=== PATIENT | female | born 1940 | race Caucasian/White ===

== ENCOUNTER 2024-04-09 17:41 | Emergency (ER) | payer MEDICARE, OTHER ==
[2024-04-09 18:04] LABS: BASOPHILS 1.3 % (0-2); EOSINOPHILS 2.1 % (0-6); HEMATOCRIT 44.6 % (35.0-50.0); HEMOGLOBIN 14.5 g/dL (12.0-18.0); LYMPHOCYTES 38.8 % (24-44); MCH 31.5 (27-36); MCHC 32.4 g/dl (30-36); MCV 97.2 fl (81-99); MONOCYTES 11.8 % (0-12); PLATELET COUNT 216 K/uL (140-440); RBC 4.59 M/ul (4.3-5.7)
[2024-04-09 18:18] LABS: ALBUMIN/GLOBULIN RATIO 0.95 (1.1-2.4); ALCOHOL, MEDICAL <3 ng/dL (<3); ALKALINE PHOSPHATASE 136 U/L (46-116); ALT (SGPT) 23 U/L (14-59); ANION GAP 9.8 (7-21); AST (SGOT) 25 U/L (15-37); BILIRUBIN, TOTAL 0.7 ng/dL (0.2-1.0); BUN/CREATININE RATIO 12.34 (6.0-28.6); CALCIUM 9.2 mg/dL (8.5-10.1); CARBON DIOXIDE 33 mmol/L (21-32); CHLORIDE 96 mmol/L (98-107); CREATININE, SERUM 0.81 mg/dL (0.55-1.02); GLOMERULAR FILTRATION RATE,EST 71 mL/min (>60); POTASSIUM 3.8 mmol/L (3.5-5.1); PROTEIN, TOTAL 8.2 g/dL (6.4-8.2); UREA NITROGEN 10 mg/dL (7-18)
[2024-04-09] MEDS ORDERED: LIDOCAINE/RACEPINEP/TETRACAINE 3 ML SYR TOP ONE (18:45)
[2024-04-09 19:30] VITALS: BP 208/96
== END 2024-04-09 19:35 | disposition home or self-care (01) ==
LOC: ED 17:41
PROVIDERS: Emergency Medicine
DX: S01.01XA Laceration without foreign body of scalp, initial encounter (principal); I10 Essential (primary) hypertension; I48.91 Unspecified atrial fibrillation; W01.0XXA Fall on same level from slipping, tripping and stumbling without subsequent striking against object, initial encounter; Z88.5 Allergy status to narcotic agent
CPT/HCPCS: 36415; 70450; 80053; 85025; G0480

== ENCOUNTER 2024-06-11 13:39 | Emergency (ER) | payer MEDICARE, OTHER ==
[~2024-06-11] VITALS: Ht 165.1 cm; Wt 65.5 kg
[2024-06-11] MEDS ORDERED: METOPROLOL TAR100 MG PO (14:01)
[2024-06-11] MEDS ORDERED: LEVOTHYROXINE50 MCG PO (14:01)
[2024-06-11] MEDS ORDERED: XARELTO20 MG PO (14:01)
[2024-06-11] MEDS ORDERED: VERAPAMIL ER P300 MG PO (14:01)
[2024-06-11 14:19] LABS: BASOPHILS 0.2 % (0-2); EOSINOPHILS 0.6 % (0-6); HEMATOCRIT 40.2 % (35.0-50.0); HEMOGLOBIN 13.3 g/dL (12.0-18.0); LYMPHOCYTES 23.5 % (24-44); MCH 32.1 (27-36); MCHC 33.2 g/dl (30-36); MCV 96.8 fl (81-99); MONOCYTES 11.2 % (0-12); NEUTROPHILS 64.5 % (39-80); PLATELET COUNT 208 K/uL (140-440); RBC 4.15 M/ul (4.3-5.7); RDW 17.2 (10.5-15.0)
[2024-06-11] MEDS ORDERED: predniSONE 20 MG TAB PO ONE (14:30)
[2024-06-11] MEDS ORDERED: ALBUTEROL/IPRATROPIUM 3 ML NEB INH ONE (14:30)
[2024-06-11 14:36] LABS: ALBUMIN 3.8 g/dL (3.4-5.0); ALBUMIN/GLOBULIN RATIO 0.95 (1.1-2.4); ANION GAP 9.5 (7-21); BILIRUBIN, TOTAL 1.2 ng/dL (0.2-1.0); BUN/CREATININE RATIO 16.48 (6.0-28.6); CALCIUM 9.2 mg/dL (8.5-10.1); CREATININE, SERUM 0.91 mg/dL (0.55-1.02); MAGNESIUM 2.1 mg/dL (1.8-2.4); POTASSIUM 4.5 mmol/L (3.5-5.1); PROTEIN, TOTAL 7.8 g/dL (6.4-8.2)
[2024-06-11] MEDS ORDERED: LASIX20 MG PO (16:28)
[2024-06-11] MEDS ORDERED: VENTOLIN HFA18 GM INH (16:28)
[2024-06-11] MEDS ORDERED: INHALER, ASSIST DEVICES 1 EACH SPACER MISC ONE (16:30)
[2024-06-11] MEDS ORDERED: AMLODIPINE BESYLATE 2.5 MG TAB PO ONE (16:30)
[2024-06-11] MEDS ORDERED: FUROSEMIDE 20 MG TAB PO ONE (16:30)
[2024-06-11] MEDS ORDERED: ALBUTEROL SULFATE 8 GM HOME.PACK INH ONE (16:30)
[2024-06-11 17:35] VITALS: BP 174/115
--- NOTE | 2024-06-12 17:05 | EKG ---
[facility] [address] [facility] [place], [place] [address] Signed Atrial fibrillation Left axis deviation Right bundle branch block T wave abnormality, consider lateral ischemia Abnormal ECG No previous ECGs available Confirmed by Jace Lindsay MD ([id number]) on 06/12/2024 5:04:53 PM Electronically Signed By: JACE LINDSAY MD 06/12/24 1705 PATIENT NAME: GRACEDIMPLE PENNY Electrocardiogram DATE OF : 36 PHYSICIAN: JACE LINDSAY MD REPORT #: [id number] REPORT IS CONFIDENTIAL AND NOT TO BE RELEASED WITHOUT AUTHORIZATION
== END 2024-06-11 17:35 | disposition home or self-care (01) ==
LOC: ED 13:39
PROVIDERS: Emergency Medicine
DX: I11.0 Hypertensive heart disease with heart failure (principal); I50.9 Heart failure, unspecified; I48.91 Unspecified atrial fibrillation; Z79.01 Long term (current) use of anticoagulants; Z79.899 Other long term (current) drug therapy; Z88.5 Allergy status to narcotic agent; I08.1 Rheumatic disorders of both mitral and tricuspid valves; I27.20 Pulmonary hypertension, unspecified
CPT/HCPCS: 36415; 71045; 80053; 83735; 83880; 84484; 85025; 93005; 93010; 93306; 94640; 94664; 99285-25; J7512

== ENCOUNTER 2024-08-11 10:17 | Emergency (ER) | payer MEDICARE, OTHER ==
[~2024-08-11] VITALS: Ht 165.1 cm; Wt 65.9 kg
[~2024-08-11 10:17] MED LIST: LASIX20 MG PO; LEVOTHYROXINE50 MCG PO; METOPROLOL TAR100 MG PO; VENTOLIN HFA18 GM INH; VERAPAMIL ER P300 MG PO; XARELTO20 MG PO
[2024-08-11] MEDS ORDERED: OSTERA TABLET1 EACH PO (11:19)
[2024-08-11] MEDS ORDERED: TRAMADOL HCL50 MG PO (11:20)
[2024-08-11] MEDS ORDERED: TYLENOL EXTRA500 MG PO (11:20)
[2024-08-11] MEDS ORDERED: NITROGLYCERIN 0.4 MG SUBL SL PRN (11:30)
[2024-08-11] MEDS ORDERED: ondansetron HCL 4 MG/2 ML VIAL IV ONE (11:30)
[2024-08-11] MEDS ORDERED: HYDROmorphone HCL 1 MG/ML SYR IV ONE (11:30)
[2024-08-11] MEDS ORDERED: SODIUM CHLORIDE 0.9% 1,000 ML IV ONE (11:30)
[2024-08-11 11:40] LABS: BASOPHILS 1.1 % (0-2); EOSINOPHILS 0.7 % (0-6); HEMATOCRIT 39.1 % (35.0-50.0); HEMOGLOBIN 13.1 g/dL (12.0-18.0); MCH 33.6 (27-36); MCHC 33.5 g/dl (30-36); MCV 100.5 fl (81-99); MONOCYTES 11.8 % (0-12); NEUTROPHILS 70.4 % (39-80); PLATELET COUNT 178 K/uL (140-440); RBC 3.89 M/ul (4.3-5.7); RDW 16.6 (10.5-15.0)
[2024-08-11 11:57] LABS: INR 3.85 (0.80-1.30); PROTIME 36.7 Sec (11.2-14.2)
[2024-08-11 12:03] LABS: PARTIAL THROMBOPLASTIN TIME 52.5 Sec (22.9-41.3)
[2024-08-11 12:08] LABS: ALBUMIN 3.4 g/dL (3.4-5.0); ALBUMIN/GLOBULIN RATIO 0.79 (1.1-2.4); ANION GAP 12.6 (7-21); BILIRUBIN, TOTAL 1.2 ng/dL (0.2-1.0); BUN/CREATININE RATIO 13.04 (6.0-28.6); CREATININE, SERUM 0.92 mg/dL (0.55-1.02); POTASSIUM 3.6 mmol/L (3.5-5.1); PROTEIN, TOTAL 7.7 g/dL (6.4-8.2)
[2024-08-11 13:05] LABS: INFLUENZA B NAA NEGATIVE (NEGATIVE); RESPIRATORY SYNCYTIAL VIR NAA NEGATIVE (NEGATIVE)
[2024-08-11 13:51] LABS: BILIRUBIN, URINE NEGATIVE (negative); BLOOD/HGB, URINE SMALL (Negative); KETONE, URINE NEGATIVE (Negative); LEUK ESTERASE, URINE NEGATIVE (negative); NITRITE, URINE NEGATIVE (negative)
[2024-08-11 13:58] LABS: BACTERIA, URINE RARE /hpf (negative); CASTS, URINE NONE SEEN \\lpf; COLLECTION TYPE, URINE CLEAN CATCH; CRYSTALS, URINE NONE SEEN (0-1+); EPITHELIAL CELLS, URINE SQUAMOUS 1+ /lpf (0-1+); REFLEX CULTURE, URINE No (No)
[2024-08-11] MEDS ORDERED: HYDROCODON-ACE1 EA10 PO (15:33)
[2024-08-11 15:44] VITALS: BP 157/99
--- NOTE | 2024-08-14 19:06 | EKG ---
[facility] [address] [facility] [place] [address] Signed Atrial fibrillation with a competing junctional pacemaker Right bundle branch block T wave abnormality, consider inferolateral ischemia Abnormal ECG When compared with ECG of 11-JUN-2024 14:03, T wave inversion more evident in Anterolateral leads QT has lengthened Confirmed by Jace Lindsay MD ([id number]) on 08/14/2024 7:06:18 PM Electronically Signed By: JACE LINDSAY MD 08/14/24 1906 PATIENT NAME: DIMPLE EDWARDS PENNY Electrocardiogram DATE OF : 36 PHYSICIAN: JACE LINDSAY MD REPORT #: [id number] REPORT IS CONFIDENTIAL AND NOT TO BE RELEASED WITHOUT AUTHORIZATION
== END 2024-08-11 15:51 | disposition home or self-care (01) ==
LOC: ED 10:17
PROVIDERS: Emergency Medicine
DX: R10.31 Right lower quadrant pain (principal); R10.32 Left lower quadrant pain; R07.89 Other chest pain; I12.9 Hypertensive chronic kidney disease with stage 1 through stage 4 chronic kidney disease, or unspecified chronic kidney disease; I50.9 Heart failure, unspecified; I48.91 Unspecified atrial fibrillation; Z88.5 Allergy status to narcotic agent; Z79.01 Long term (current) use of anticoagulants; Z79.890 Hormone replacement therapy; Z79.899 Other long term (current) drug therapy
CPT/HCPCS: 36415; 71045; 74176; 80053; 81001; 83690; 83880; 84484; 85025; 85610; 85730; 87502; 93005; 93010; 96374; 96375; 99285-25; J1171; J2405; J7030; U0002

== ENCOUNTER 2024-08-28 13:32 | Inpatient (IN) | payer MEDICARE, OTHER ==
[~2024-08-28] VITALS: Ht 165.1 cm
[~2024-08-28 13:32] MED LIST changes: +HYDROCODON-ACE1 EA10 PO; +TRAMADOL HCL50 MG PO; +TYLENOL325 MG PO; +VITAMIN D350 MCG PO
[2024-08-28 14:29] LABS: BASOPHILS 1.3 % (0-2); EOSINOPHILS 0.8 % (0-6); HEMATOCRIT 39.8 % (35.0-50.0); HEMOGLOBIN 13.1 g/dL (12.0-18.0); LYMPHOCYTES 18.9 % (24-44); MCH 33.5 (27-36); MCHC 32.9 g/dl (30-36); MCV 101.8 fl (81-99); MONOCYTES 12.8 % (0-12); NEUTROPHILS 66.2 % (39-80); PLATELET COUNT 236 K/uL (140-440); RBC 3.91 M/ul (4.3-5.7); RDW 16.1 (10.5-15.0)
[2024-08-28 14:56] LABS: ALBUMIN 3.8 g/dL (3.4-5.0); ALBUMIN/GLOBULIN RATIO 0.9 (1.1-2.4); ANION GAP 12.5 (7-21); BILIRUBIN, TOTAL 1.1 ng/dL (0.2-1.0); BUN/CREATININE RATIO 13.59 (6.0-28.6); CALCIUM 9.1 mg/dL (8.5-10.1); CREATININE, SERUM 1.03 mg/dL (0.55-1.02); POTASSIUM 3.5 mmol/L (3.5-5.1)
[2024-08-28] MEDS ORDERED: hydrALAZINE HCL 25 MG TAB PO ONE (17:30)
[2024-08-28] MEDS ORDERED: LIDOCAINE HCL 4% 1 EACH PATCH TD SCH ×2 (18:30→18:31)
[2024-08-28] MEDS ORDERED: INHALER, ASSIST DEVICES 1 EACH SPACER MISC ONE (19:00)
[2024-08-28] MEDS ORDERED: ALBUTEROL SULFATE 8 GM INH INH PRN (19:00)
--- NOTE | 2024-08-28 19:25 | EKG ---
[facility] [address] [facility] [place] [address] Signed Atrial fibrillation with premature ventricular or aberrantly conducted complexes Right bundle branch block Anteroseptal infarct , age undetermined T wave abnormality, consider inferolateral ischemia Abnormal ECG When compared with ECG of 11-AUG-2024 11:17, No significant change was found Confirmed by Kayla Lindsay MD ([id number]) on 08/28/2024 7:25:38 PM Electronically Signed By: KAYLA LINDSAY MD 08/28/24 1925 PATIENT NAME: DIMPLE EDWARDS Electrocardiogram DATE OF : 36 PHYSICIAN: KAYLA LINDSAY MD REPORT #: [id number] REPORT IS CONFIDENTIAL AND NOT TO BE RELEASED WITHOUT AUTHORIZATION
--- NOTE | 2024-08-28 20:20 | NUR ---
PATIENT TO THE FLOOR FROM ER BY THIS RN. PATIENT ABLE TO TRANSFER FROM STRETCHER TO BED USING SBA. VS AND BED WEIGHT OBTAINED AND RECORDED. PATIENT EDUCATED TO ROOM AND CALL LIGHT. PATIENT VERBILIZES UNDERSTANDING. NO FURTHER NEEDS. CALL LIGHT IN REACH.
[2024-08-28 20:29] VITALS: BP 195/88
[2024-08-28] MEDS ORDERED: POTASSIUM CHLORIDE 10 MEQ TABCR PO ONE (20:30)
[2024-08-28] MEDS ORDERED: FUROSEMIDE 40 MG/4 ML VIAL IV ONE (20:30)
[2024-08-28] MEDS ORDERED: LATANOPROST2.5 ML OU (20:41)
[2024-08-28 20:52] VITALS: BP 167/49
--- NOTE | 2024-08-28 20:57 | NUR ---
PT NEEDED TO USE BATHROOM. PT GAIT STEADY AND PT USED BATHROOM INDEPENDENTLY. PT NO WBACK IN BED AND DAIRY MANAGER OBTAINED AND DOCUMENTED VITALS AND I&O. PT STATES NO FURTHER NEEDS AT THIS TIME. CALL LIGHT WITHIN REACH.
[2024-08-28] MEDS ORDERED: MELATONIN 3 MG TAB PO SCH (21:00)
[2024-08-28] MEDS ORDERED: LIDOCAINE PATCH REMOVAL 1 EA TD SCH ×2 (21:00)
[2024-08-28] MEDS ORDERED: METOPROLOL TARTRATE 100 MG TAB PO SCH (21:00)
--- NOTE | 2024-08-28 21:30 | NUR ---
PATIENT RESTING IN BED. SCHEDULED MEDICATION ADMINISTERED. IV FLUSHES WNL. LIDOCANE PATCHES PLACED ON PATIENT LOWER BACK. ASSESSMENT COMPLETE. PATIENT HAS NO FURTHER NEEDS. CALL LIGHT IN REACH. BED ALARM ON FOR SAFETY.
[2024-08-28] MEDS ORDERED: ALBUTEROL SULFATE 0.083% 3 ML VIAL INH PRN (22:00)
--- NOTE | 2024-08-28 22:14 | NUR ---
PT CALLED, UP WITH MIMINAL ASSISTANCE, USING FWW FOR SAFETY SHE STATED EARLIER HER "KNEE" GIVES OUT AND I FALL. USES FURNITURE TO HANG ON AT HOME, OR USES A CANE. VOIDED, BACK TO BED, NEEDED TO SIT ON EDGE BED TO CATCH HER BREATH. COMPLAINES OF THE AUTUMN SIDE PAIN SHE PUTS HER HANDS OVER THE LATERAL MID RIB AREA. BACK TO BED, CPOX READING 87-90; BED ALARM IN PLACE FOR SAFETY.
--- NOTE | 2024-08-28 22:57 | NUR ---
CALL LIGHT ANSWERED. PT NEEDED TO USE BATHROOM. CANVAS GOODS FABRICATOR SBA WITH FWW TO BATHROOM. PT VOIDED AND ASSISTED BACK TO BED. CPOX RECONNECTED. PT STATES NO FURTHER NEEDS AT THIS TIME. CALL LIGHT WITHIN REACH AND BED ALARM ON.
[2024-08-29] VITALS (8 sets, daily range): BP systolic 112–171; BP diastolic 71–94
--- NOTE | 2024-08-29 00:28 | NUR ---
PT NEEDED TO USE BATHROOM. IMPORT COORDINATION AND PRODUCTION HEAD ASSISTED PT WITH FWW TO BATHROOM. PT VIDED AND ASSISTED BACK TO BED. OUTPUT MEASURED. PT STATES NO FURTHER NEEDS AT THIS TIME. CALL LIGHT WITHIN REACH AND BED ALARM ON.
--- NOTE | 2024-08-29 02:48 | NUR ---
PATIENTS CPOX ALARMING. PATIENT O2 SAT DROPPED TO 83% WHILE ASLEEP. THIS IS PLACED 2L NC ON PATIENT. PATIENT UP TO BATHROOM WITH VOID WITH MINIMAL SBA AND FWW. PATIENT BACK TO BED. BED ALARM ON FOR SAFETY. CALL LIGHT IN REACH.
--- NOTE | 2024-08-29 04:19 | NUR ---
PT CALLED, SBA FWW TO BATHROOM, VOIDED. BACK TO BED, O2 TO 1L PT WAS HIGH 90'S AT REST ON 2L. BED ALARM PLACED FOR SAFETY.
[2024-08-29 05:37] LABS: BASOPHILS 1.3 % (0-2); EOSINOPHILS 0.9 % (0-6); HEMATOCRIT 36.6 % (35.0-50.0); HEMOGLOBIN 12.3 g/dL (12.0-18.0); LYMPHOCYTES 22.1 % (24-44); MCH 33.4 (27-36); MCHC 33.7 g/dl (30-36); MCV 99.2 fl (81-99); MONOCYTES 14.6 % (0-12); NEUTROPHILS 61.1 % (39-80); PLATELET COUNT 214 K/uL (140-440); RBC 3.69 M/ul (4.3-5.7); RDW 15.7 (10.5-15.0)
--- NOTE | 2024-08-29 05:43 | NUR ---
PT NEEDED TO USE BATHROOM. TUBE MILL OPERATOR ASSISTED PT WITH FWW TO BATHROOM. PT VOIDED AND ASSISTED TO SCALE FOR WEIGHT. STANDIING WEIGHT DOCUMENTED. PT ASSISTED TO BED. VITALS AND I&O OBTAINED. PT STATES NO FURTHER NEEDS AT THIS TIME. CALL LIGHT WITHIN REACH.
[2024-08-29 05:47] LABS: ANION GAP 12.5 (7-21); BUN/CREATININE RATIO 13.63 (6.0-28.6); CALCIUM 8.7 mg/dL (8.5-10.1); CREATININE, SERUM 0.66 mg/dL (0.55-1.02); MAGNESIUM 1.8 mg/dL (1.8-2.4); POTASSIUM 3.5 mmol/L (3.5-5.1)
--- NOTE | 2024-08-29 05:49 | NUR ---
PATIENT RESTING IN BED. SCHEDULED MEDICATION ADMINISTERED. PATIENT HAS NO FURTHER NEEDS. CALL LIGHT IN REACH.
[2024-08-29] MEDS ORDERED: LEVOTHYROXINE SODIUM 50 MCG TAB PO SCH (07:00)
--- NOTE | 2024-08-29 07:35 | NUR ---
Patient up to restroom to void. Patient is alert and oriented x3, no acute distress. Patient back to bed using FWW, SBA. Call light within reach.
--- NOTE | 2024-08-29 08:17 | NUR ---
PATIENT IN BED AT THIS TIME. ELEVATOR CONSTRUCTOR ELECTRIC WENT INTO PATIENTS ROOM FOR HOURLY ROUNDS. CALL LIGHT WITHIN REACH, NO FURTHER NEEDS AT THIS TIME.
[2024-08-29] MEDS ORDERED: lisinopriL 5 MG TAB PO SCH (09:00)
--- NOTE | 2024-08-29 09:10 | NUR ---
SPOKE WITH DR. FERNANDEZ, CHANGE PATIENT TO INPT STATUS NOW.
--- NOTE | 2024-08-29 09:29 | NUR ---
UR CLINICAL REVIEW: 2MN ZAHCERY, MEETS INPT CRITERIA MEDICARE FROM OBS TO INPT 08/29/24 @ 0913 ORDER MATCHES REG NO AUTH REQUIRED PER MEDICARE RULES DC PLAN PENDING, POTENTIAL TRANSFER FOR CARDIOLOGY
--- NOTE | 2024-08-29 09:46 | NUR ---
PATIENT IN CHAIR AT THIS TIME. MARINE ENGINEERING TECHNICIANS CHARTED VITALS AND I&OS', OT IN ROOM WITH PATIENT. CALL LIGHT WITHIN REACH, NO FURTHER NEEDS AT THIS TIME.
[2024-08-29] MEDS ORDERED: LISINOPRIL2.5 MG PO (10:06)
[2024-08-29] MEDS ORDERED: HYDRALAZINE HCL25 MG PO (10:22)
--- NOTE | 2024-08-29 11:04 | NUR ---
VISITED DURING SPIRITUAL CARE ROUNDS. PT SUPPORTED BY DAUGHTER AND GRANDDAUGHTER IN ROOM. NO IMMEDIATE NEEDS. MEDICAL CSR PROVIDED SUPPORTIVE PRESENCE, HOSPITALITY, PRAYER. PT AND FAMILY EXPRESSED GRATITUDE.
[2024-08-29] MEDS ORDERED: SALONPAS1 EACH TOP (11:16)
[2024-08-29] MEDS ORDERED: MUCINEX1200 MG PO (11:16)
[2024-08-29] MEDS ORDERED: TYLENOL PM EXS1 EACH PO (11:17)
--- NOTE | 2024-08-29 11:17 | NUR ---
MED REC COMPLETE
--- NOTE | 2024-08-29 11:29 | NUR ---
Patient in chair at this time. SENIOR BIOINFORMATICS SPECIALIST went into to patients room for hourly rounds. call light within reach, family in room at this time, no further needs.
[2024-08-29] MEDS ORDERED: PHARMACY RENAL DOSE ADJUSTMENT 1 DOSE MISC PO SCH (12:00)
[2024-08-29] MEDS ORDERED: Rivaroxaban 10 MG TAB PO SCH ×2 (17:00)
[2024-08-30] MEDS ORDERED: lisinopriL 2.5 MG TABLET PO SCH (09:00)
== END 2024-08-29 11:50 | disposition home or self-care (01) | DRG 291 ==
LOC: ED 13:32 → MS 13:34
PROVIDERS: Emergency Medicine; ADMIT Student in an Organized Health Care Education/Training Program; ATTEND Student in an Organized Health Care Education/Training Program
DX: I11.0 Hypertensive heart disease with heart failure (principal); I50.33 Acute on chronic diastolic (congestive) heart failure; I48.91 Unspecified atrial fibrillation; I36.1 Nonrheumatic tricuspid (valve) insufficiency; I27.20 Pulmonary hypertension, unspecified; E03.9 Hypothyroidism, unspecified; Z90.49 Acquired absence of other specified parts of digestive tract; Z88.5 Allergy status to narcotic agent; Z79.01 Long term (current) use of anticoagulants; Z79.899 Other long term (current) drug therapy; Z79.890 Hormone replacement therapy
CPT/HCPCS: 36415; 71045; 80048; 80053; 83735; 83880; 84484; 85025; 93005; 93010; 94640; 94762; A9270; J1940

== ENCOUNTER 2024-10-18 11:45 | Emergency (ER) | payer MEDICARE, OTHER ==
[~2024-10-18] VITALS: Ht 165.1 cm; Wt 68.9 kg
[~2024-10-18 11:45] MED LIST changes: +HYDRALAZINE HCL25 MG PO; +LATANOPROST2.5 ML OU; +LISINOPRIL2.5 MG PO; +MUCINEX1200 MG PO; +SALONPAS1 EACH TOP; +TYLENOL PM EXS1 EACH PO
[2024-10-18 13:57] LABS: BASOPHILS 0.9 % (0-2); EOSINOPHILS 0.2 % (0-6); HEMATOCRIT 38.3 % (35.0-50.0); HEMOGLOBIN 12.4 g/dL (12.0-18.0); LYMPHOCYTES 10.7 % (24-44); MCH 31.5 (27-36); MCHC 32.3 g/dl (30-36); MCV 97.4 fl (81-99); MONOCYTES 13.5 % (0-12); NEUTROPHILS 74.7 % (39-80); PLATELET COUNT 176 K/uL (140-440); RBC 3.93 M/ul (4.3-5.7); RDW 15.9 (10.5-15.0)
[2024-10-18 14:04] LABS: ANION GAP 10.7 (7-21); BUN/CREATININE RATIO 14.45 (6.0-28.6); CREATININE, SERUM 0.83 mg/dL (0.55-1.02); POTASSIUM 3.7 mmol/L (3.5-5.1)
[2024-10-18] MEDS ORDERED: POTASSIUM CHLORIDE 10 MEQ TABCR PO ONE (15:15)
[2024-10-18] MEDS ORDERED: FUROSEMIDE 40 MG/4 ML VIAL IV ONE (15:15)
[2024-10-18] MEDS ORDERED: K-TAB ER20 MEQ PO (18:05)
[2024-10-18] MEDS ORDERED: HYDROCODON-ACE1 EA10 PO (18:05)
[2024-10-18 18:20] VITALS: BP 161/84
--- NOTE | 2024-10-18 22:56 | EKG ---
[facility] [address] [place] [address] Signed Atrial fibrillation Right bundle branch block Septal infarct (cited on or before 28-AUG-2024) T wave abnormality, consider inferior ischemia Abnormal ECG When compared with ECG of 28-AUG-2024 14:41, Questionable change in initial forces of Anteroseptal leads Nonspecific T wave abnormality has replaced inverted T waves in Lateral leads Confirmed by Medina Rivas MD () on 10/18/2024 10:56:36 PM Electronically Signed By: MEDINA RIVAS MD 10/18/24 2256 PATIENT NAME: DIMPLE EDWARDS Electrocardiogram DATE OF : 36 PHYSICIAN: MEDINA RIVAS MD REPORT #: [id number] REPORT IS CONFIDENTIAL AND NOT TO BE RELEASED WITHOUT AUTHORIZATION
== END 2024-10-18 18:22 | disposition home or self-care (01) ==
LOC: ED 11:45
PROVIDERS: Emergency Medicine
DX: I11.0 Hypertensive heart disease with heart failure (principal); I50.9 Heart failure, unspecified; I48.91 Unspecified atrial fibrillation; Z88.5 Allergy status to narcotic agent; Z79.01 Long term (current) use of anticoagulants; Z79.890 Hormone replacement therapy; Z79.899 Other long term (current) drug therapy
CPT/HCPCS: 36415; 80048; 83880; 85025; 93005; 93010; 96374; 99285-25; A9270; J1940

== ENCOUNTER 2024-10-23 11:02 | Emergency (ER) | payer MEDICARE, OTHER ==
[~2024-10-23] VITALS: Ht 165.1 cm; Wt 66.2 kg
[~2024-10-23 11:02] MED LIST changes: +K-TAB ER20 MEQ PO
[2024-10-23 11:34] LABS: BASOPHILS 0.3 % (0-2); HEMATOCRIT 41.4 % (35.0-50.0); HEMOGLOBIN 13.7 g/dL (12.0-18.0); LYMPHOCYTES 9.3 % (24-44); MCH 31.8 (27-36); MCHC 32.9 g/dl (30-36); MCV 96.6 fl (81-99); NEUTROPHILS 77.4 % (39-80); PLATELET COUNT 240 K/uL (140-440); RBC 4.29 M/ul (4.3-5.7); RDW 16.3 (10.5-15.0)
[2024-10-23 11:54] LABS: ALBUMIN 3.9 g/dL (3.4-5.0); ALBUMIN/GLOBULIN RATIO 0.87 (1.1-2.4); ANION GAP 10.9 (7-21); BILIRUBIN, TOTAL 1.5 ng/dL (0.2-1.0); BUN/CREATININE RATIO 28.57 (6.0-28.6); CALCIUM 9.9 mg/dL (8.5-10.1); CREATININE, SERUM 0.98 mg/dL (0.55-1.02); MAGNESIUM 1.9 mg/dL (1.8-2.4); POTASSIUM 3.9 mmol/L (3.5-5.1); PROTEIN, TOTAL 8.4 g/dL (6.4-8.2)
[2024-10-23] MEDS ORDERED: lisinopriL 20 MG TAB PO ONE (12:00)
[2024-10-23] MEDS ORDERED: FUROSEMIDE 40 MG/4 ML VIAL IV ONE (12:00)
[2024-10-23] MEDS ORDERED: ACETAMINOPHEN 500 MG TAB PO ONE (14:30)
[2024-10-23] MEDS ORDERED: SOAANZ40 MG PO (16:05)
[2024-10-23 16:14] VITALS: BP 154/86
== END 2024-10-23 16:14 | disposition home or self-care (01) ==
LOC: ED 11:02
PROVIDERS: Emergency Medicine
DX: I11.0 Hypertensive heart disease with heart failure (principal); I50.9 Heart failure, unspecified; I48.91 Unspecified atrial fibrillation; Z88.5 Allergy status to narcotic agent; Z79.890 Hormone replacement therapy; Z79.01 Long term (current) use of anticoagulants; Z79.899 Other long term (current) drug therapy
CPT/HCPCS: 36415; 71045; 80053; 83735; 83880; 84484; 85025; 96374; 99285-25; A9270; J1940

== ENCOUNTER 2024-11-13 11:03 | Emergency (ER) | payer MEDICARE, OTHER ==
[~2024-11-13] VITALS: Ht 165.1 cm; Wt 65.3 kg
[~2024-11-13 11:03] MED LIST changes: +SOAANZ40 MG PO
[2024-11-13] MEDS ORDERED: HYDRALAZINE HCL25 MG PO (11:25)
[2024-11-13 12:50] VITALS: BP 148/82
== END 2024-11-13 12:50 | disposition home or self-care (01) ==
LOC: ED 11:03
DX: S80.12XA Contusion of left lower leg, initial encounter (principal); X58.XXXA Exposure to other specified factors, initial encounter; I11.0 Hypertensive heart disease with heart failure; I50.9 Heart failure, unspecified; I48.91 Unspecified atrial fibrillation; Z79.01 Long term (current) use of anticoagulants; Z79.899 Other long term (current) drug therapy; Z79.890 Hormone replacement therapy
CPT/HCPCS: 99283

== ENCOUNTER 2025-04-26 03:13 | Emergency (ER) | payer MEDICARE, OTHER ==
[~2025-04-26] VITALS: Ht 165.1 cm; Wt 64.7 kg
[2025-04-26 03:39] LABS: BASOPHILS 1.1 % (0.1-1.2); EOSINOPHILS 0.2 % (0.7-5.8); LYMPHOCYTES 22.4 % (19.3-51.7); MCH 30.2 PG (25.6-32.2); MCHC 30.1 g/dL (32.2-35.5); MCV 100.2 fL (79.4-94.8); MONOCYTES 18.3 % (4.7-12.5); NEUTROPHILS 57.4 % (34.0-71.1); RBC 4.14 M/uL (3.93-5.22)
[2025-04-26 04:02] LABS: ALT (SGPT) 15.0 U/L (14-59); AST (SGOT) 32.0 U/L (15-37); GLOMERULAR FILTRATION RATE,EST 26.0 mL/min (>60); PROTEIN, TOTAL 7.5 g/dL (6.4-8.2); UREA NITROGEN 33.0 mg/dL (7-18)
[2025-04-26] MEDS ORDERED: Insulin Regular, Human 100 UNIT/ML ML ONE (04:08)
[2025-04-26] MEDS ORDERED: SODIUM BICARBONATE 50 MEQ/50 ML VIAL ONE (04:09)
[2025-04-26] MEDS ORDERED: DEXTROSE 50% 50 ML SYR ONE (04:09)
[2025-04-26] MEDS ORDERED: CALCIUM CHLORIDE 1,000 MG/10 ML SYR IV ONE (04:30)
[2025-04-26] MEDS ORDERED: ALBUTEROL SULFATE 0.5% 2.5 MG/0.5 ML VIAL INH ONE (04:30)
[2025-04-26] MEDS ORDERED: SODIUM BICARBONATE 50 MEQ/50 ML SYR IV ONE (04:30)
[2025-04-26] MEDS ORDERED: SODIUM BICARBONATE 50 MEQ/50 ML SYR IV SCH (05:15)
[2025-04-26] MEDS ORDERED: ATROPINE SULFATE 1 MG/10 ML SYR IV SCH (05:15)
[2025-04-26] MEDS ORDERED: Insulin Regular, Human 100 UNIT/ML ML IV ONE (05:15)
[2025-04-26] MEDS ORDERED: SUCCINYLCHOLINE CHLORIDE 20 MG/ML MDV IV ONE (05:15)
[2025-04-26] MEDS ORDERED: DEXTROSE 50% 50 ML SYR IV ONE (05:15)
[2025-04-26 07:23] VITALS: BP 00/00
--- NOTE | 2025-04-27 09:47 | EKG ---
[facility] [address] [facility] [place], [place] [address] Signed Idioventricular rhythm Septal infarct , age undetermined T wave abnormality, consider lateral ischemia Abnormal ECG When compared with ECG of 18-Oct-2024 12:10:00 Idioventricular rhythm has replaced Atrial fibrillation Confirmed by Kayla Lindsay MD ([id number]) on 04/27/2025 9:47:52 AM Electronically Signed By: KAYLA LINDSAY MD 04/27/25 0947 PATIENT NAME: DIMPLE EDWARDS Electrocardiogram DATE OF : 36 PHYSICIAN: KAYLA LINDSAY MD REPORT #: [id number] REPORT IS CONFIDENTIAL AND NOT TO BE RELEASED WITHOUT AUTHORIZATION
== END 2025-04-26 07:26 ==
LOC: ED 03:13
PROVIDERS: Emergency Medicine
DX: J96.90 Respiratory failure, unspecified, unspecified whether with hypoxia or hypercapnia (principal); R00.1 Bradycardia, unspecified; E87.5 Hyperkalemia; I48.91 Unspecified atrial fibrillation; I11.0 Hypertensive heart disease with heart failure; I50.9 Heart failure, unspecified; Z79.899 Other long term (current) drug therapy; Z88.5 Allergy status to narcotic agent
CPT/HCPCS: 31500; 36415; 71045; 80053; 82803; 83735; 83880; 84484; 85025; 85379; 85730; 87502; 92950; 93005; 93010; 94644; 99285-25; J0171; J0330; J0461; J1265; J1815; J2704; U0002